=== PATIENT | female | born 1995 | race African-American/Black ===

== ENCOUNTER 2022-03-01 01:26 | Inpatient (IN) | payer OTHER ==
[~2022-03-01] VITALS: Ht 162.6 cm; Wt 55.5 kg
[2022-03-01 02:12] LABS: HEMATOCRIT 40.9 % (36.0-47.0); HEMOGLOBIN 13.6 g/dl (12.0-15.5); MEAN CORPUSCULAR HGB CONC 33.3 g/dl (32.0-36.5); MEAN CORPUSCULAR VOLUME 81.2 fl (80.0-96.0); PLATELET COUNT, AUTOMATED 340 10^3/uL (150-450); RED BLOOD COUNT 5.04 10^6/uL (4.00-5.40)
[2022-03-01 02:30] LABS: ETHYL ALCOHOL (ETHANOL) 0.294 % (0.000-0.010)
[2022-03-01 02:31] LABS: ACETAMINOPHEN LEVEL < 2.0 UG/ML (10.0-20.0)
[2022-03-01 02:32] LABS: ALBUMIN 3.2 G/DL (3.2-5.2); ALKALINE PHOSPHATASE 72 U/L (46-116); ALT/SGPT 42 U/L (7.0-40); AST/SGOT 58 U/L (<34); BILIRUBIN,DIRECT < 0.1 MG/DL (<0.4); BILIRUBIN,TOTAL 0.3 MG/DL (0.3-1.2); BLOOD UREA NITROGEN 9 MG/DL (9-23); CALCIUM LEVEL 9.1 MG/DL (8.5-10.1); CARBON DIOXIDE LEVEL 24 MMOL/L (20-31); CHLORIDE LEVEL 105 MMOL/L (98-107); CREATININE FOR GFR 0.97 MG/DL (0.55-1.30); GLOMERULAR FILTRATION RATE > 60.0 (>60); GLUCOSE, FASTING 101 MG/DL (60-100); POTASSIUM SERUM 4.2 MMOL/L (3.5-5.1); SALICYLATE LEVEL < 3.0 MG/DL (<30); SODIUM LEVEL 138 MMOL/L (136-145); TOTAL PROTEIN 6.9 G/DL (5.7-8.2)
[2022-03-01 02:34] LABS: THYROID STIMULATING HORMONE 0.642 uIU/ML (0.55-4.78)
[2022-03-01 04:02] LABS: AMPHETAMINES LEVEL URINE NEGATIVE (NEGATIVE); BARBITURATES URINE NEGATIVE (NEGATIVE); BENZODIAZEPINES URINE NEGATIVE (NEGATIVE); CANNABINOIDS URINE NEGATIVE (NEGATIVE); COCAINE METABOLITE URINE NEGATIVE (NEGATIVE); METHADONE URINE NEGATIVE (NEGATIVE); OPIATES URINE NEGATIVE (NEGATIVE); PHENCYCLIDINE URINE NEGATIVE (NEGATIVE)
[2022-03-01 04:15] LABS: RSV AMPLIFICATION NEGATIVE (NEGATIVE)
[2022-03-01] MEDS ORDERED: NS 1,000 ML IV ONE (05:30)
[2022-03-01 06:17] LABS: HCG, SERUM QUALITATIVE NEGATIVE (NEGATIVE)
[2022-03-01 06:18] LABS: ACETAMINOPHEN LEVEL < 2.0 UG/ML (10.0-20.0)
[2022-03-01 06:26] LABS: ALBUMIN 2.9 G/DL (3.2-5.2); ALKALINE PHOSPHATASE 69 U/L (46-116); ALT/SGPT 38 U/L (7.0-40); AST/SGOT 48 U/L (<34); BILIRUBIN,TOTAL 0.2 MG/DL (0.3-1.2); BLOOD UREA NITROGEN 9 MG/DL (9-23); CALCIUM LEVEL 8.6 MG/DL (8.5-10.1); CARBON DIOXIDE LEVEL 26 MMOL/L (20-31); CHLORIDE LEVEL 109 MMOL/L (98-107); CREATININE FOR GFR 1.04 MG/DL (0.55-1.30); GLOMERULAR FILTRATION RATE > 60.0 (>60); GLUCOSE, FASTING 83 MG/DL (60-100); SODIUM LEVEL 142 MMOL/L (136-145)
[2022-03-01] MEDS ORDERED: HOME MED LIST COMPLETE! XX SCH (17:40)
[2022-03-03] MEDS ORDERED: LORazepam 2 MG TAB PO PRN ×2 (07:55→13:00)
[2022-03-03] MEDS ORDERED: THIAMINE 100 MG TAB PO SCH (09:00)
[2022-03-03] MEDS ORDERED: FOLIC ACID 1MG TAB PO SCH (09:00)
[2022-03-03] MEDS: NICOTINE 21MG/24HR 1 EA TRANSDERMAL TD SCH (09:00)
[2022-03-03] MEDS: MULTIVITAMINS/MINERALS THERAP 1 TAB PO SCH (09:39)
[2022-03-03 12:02] LABS: RSV AMPLIFICATION NEGATIVE (NEGATIVE)
[2022-03-03] MEDS ORDERED: MAALOX 30 ML SUSP *UDC PO PRN (13:00)
[2022-03-03] MEDS ORDERED: OLANZapine ORAL DISINTEGRATING TAB 5MG PO PRN (13:00)
[2022-03-03] MEDS ORDERED: diphenhydrAMINE 25MG CAP PO PRN (13:00)
[2022-03-03] MEDS ORDERED: MOM 30ML SUSPENSION UDC PO PRN (13:00)
[2022-03-03 17:15] VITALS: BP 133/86
[2022-03-03 17:38] VITALS: BP 133/86
[2022-03-03] MEDS: THIAMINE 100 MG TAB PO SCH (21:14)
[2022-03-04 06:33] VITALS: BP 118/60
[2022-03-04 06:34] VITALS: BP 118/60
[2022-03-04] MEDS: NICOTINE 21MG/24HR 1 EA TRANSDERMAL TD SCH (09:00)
[2022-03-04] MEDS: FOLIC ACID 1MG TAB PO SCH (09:28)
[2022-03-04] MEDS: THIAMINE 100 MG TAB PO SCH ×2 (09:29→22:11)
[2022-03-04] MEDS: MULTIVITAMINS/MINERALS THERAP 1 TAB PO SCH (09:29)
[2022-03-04] MEDS: NALTREXONE 50 MG TAB PO SCH (12:08)
[2022-03-04 14:30] VITALS: BP 118/63
[2022-03-04 15:21] VITALS: BP 118/63
[2022-03-04] MEDS: traZODone 50 MG TAB PO PRN (22:11)
[2022-03-04] MEDS: IBUPROFEN 400MG TAB PO PRN (22:14)
[2022-03-05 06:44] VITALS: BP 98/55
[2022-03-05] MEDS: NICOTINE 21MG/24HR 1 EA TRANSDERMAL TD SCH (08:28)
[2022-03-05] MEDS: THIAMINE 100 MG TAB PO SCH ×2 (08:28→20:23)
[2022-03-05] MEDS: FOLIC ACID 1MG TAB PO SCH (08:28)
[2022-03-05] MEDS: MULTIVITAMINS/MINERALS THERAP 1 TAB PO SCH (08:28)
[2022-03-05] MEDS: NALTREXONE 50 MG TAB PO SCH (08:28)
[2022-03-05] MEDS: SERTRALINE HCL 25 MG TABLET PO SCH (10:33)
[2022-03-05 16:12] VITALS: BP 122/71
[2022-03-05] MEDS: traZODone 50 MG TAB PO PRN (20:23)
[2022-03-06 06:33] VITALS: BP 105/52
[2022-03-06] MEDS: NALTREXONE 50 MG TAB PO SCH (08:16)
[2022-03-06] MEDS: NICOTINE 21MG/24HR 1 EA TRANSDERMAL TD SCH (08:16)
[2022-03-06] MEDS: SERTRALINE HCL 25 MG TABLET PO SCH (08:16)
[2022-03-06 18:17] VITALS: BP 127/64
[2022-03-06] MEDS: IBUPROFEN 400MG TAB PO PRN (21:33)
[2022-03-07 06:26] VITALS: BP 110/52
[2022-03-07] MEDS: NICOTINE 21MG/24HR 1 EA TRANSDERMAL TD SCH (08:41)
[2022-03-07] MEDS: NALTREXONE 50 MG TAB PO SCH (08:42)
[2022-03-07] MEDS: SERTRALINE HCL 25 MG TABLET PO SCH (08:42)
[2022-03-07 16:30] VITALS: BP 127/68
[2022-03-08 06:27] VITALS: BP 98/53
[2022-03-08] MEDS: NICOTINE 21MG/24HR 1 EA TRANSDERMAL TD SCH (08:53)
[2022-03-08] MEDS: NALTREXONE 50 MG TAB PO SCH (08:54)
[2022-03-08] MEDS: SERTRALINE HCL 25 MG TABLET PO SCH (08:54)
[2022-03-08] MEDS ORDERED: ACETAMINOPHEN TAB 650MG DOSE (2X325MG) PO PRN (10:15)
[2022-03-08] MEDS: DICLOFENAC EPOLAMINE 1.3% PATCH TOP SCH ×2 (12:01→23:07)
[2022-03-08 16:16] VITALS: BP 114/61
[2022-03-09 06:47] VITALS: BP 104/49
[2022-03-09] MEDS: SERTRALINE HCL 25 MG TABLET PO SCH (08:15)
[2022-03-09] MEDS: NICOTINE 21MG/24HR 1 EA TRANSDERMAL TD SCH (08:15)
[2022-03-09] MEDS: NALTREXONE 50 MG TAB PO SCH (08:15)
[2022-03-09] MEDS: DICLOFENAC EPOLAMINE 1.3% PATCH TOP SCH ×2 (11:00→23:00)
[2022-03-09 16:29] VITALS: BP 136/77
[2022-03-09] MEDS: traZODone 50 MG TAB PO PRN (23:35)
[2022-03-10 06:03] VITALS: BP 96/62
[2022-03-10] MEDS: NICOTINE 21MG/24HR 1 EA TRANSDERMAL TD SCH (09:00)
[2022-03-10] MEDS: NALTREXONE 50 MG TAB PO SCH (09:15)
[2022-03-10] MEDS: SERTRALINE HCL 25 MG TABLET PO SCH (09:15)
[2022-03-10] MEDS ORDERED: DICL1PAT6 TOP (09:40)
[2022-03-10] MEDS ORDERED: TRAZ-252 PO (09:40)
[2022-03-10] MEDS ORDERED: NALT50TA4 PO (09:40)
[2022-03-10] MEDS ORDERED: SERT25TA21 PO (09:40)
[2022-03-10] MEDS ORDERED: NICO21PAT TD (09:40)
[2022-03-10] MEDS: DICLOFENAC EPOLAMINE 1.3% PATCH TOP SCH (11:00)
== END 2022-03-10 12:29 | disposition home or self-care (01) | DRG 885 ==
LOC: M ED 01:26 → M ED INP 03-03 12:59 → M PSY 03-03 17:15
PROVIDERS: ADMIT Student in an Organized Health Care Education/Training Program; ATTEND Student in an Organized Health Care Education/Training Program
DX: F32.89 Other specified depressive episodes (principal); F43.10 Post-traumatic stress disorder, unspecified; F10.10 Alcohol abuse, uncomplicated; F60.89 Other specific personality disorders; F43.20 Adjustment disorder, unspecified; Z79.899 Other long term (current) drug therapy